=== PATIENT | male | born 1995 | race Caucasian/White ===

== ENCOUNTER 2018-09-16 08:07 | Emergency (ER) | payer BC ==
--- NOTE | 2018-09-16 09:30 | EDM.PDOC ---
ED HPI GENERAL MEDICAL PROBLEM - General Chief Complaint: Headache Stated Complaint: DIZZINESS,MILD HEADACHE Time Seen by Provider: 09/16/18 09:07 Source of Information: Reports: Patient History Limitations: Reports: No Limitations - History of Present Illness INITIAL COMMENTS - FREE TEXT/NARRATIVE: Patient presents with sneezing, runny nose that started 3 days ago. No cough and slight sore throat. He has tried Advil and Tylenol Cough and Cold. 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 [No Known Home Meds] 09/16/18 [History] Past Medical History Psychiatric History: Reports: Depression - Infectious Disease History Infectious Disease History: Reports: None Social & Family History - Tobacco Use Smoking Status *Q: Never Smoker - Caffeine Use Caffeine Use: Reports: Coffee, Energy Drinks, Soda Other Caffeine Use: diet - Recreational Drug Use Recreational Drug Use: No ED ROS ENT - Review of Systems Review Of Systems: See Below Constitutional: Reports: Fever (slight). Denies: Chills, Malaise, Weakness HEENT: Denies: Ear Pain, Throat Pain, Throat Swelling, Vision Change Respiratory: Denies: Shortness of Breath, Wheezing, Cough, Sputum Cardiovascular: Denies: Chest Pain, Syncope GI/Abdominal: Denies: Diarrhea, Vomiting : Reports: No Symptoms Musculoskeletal: Denies: Neck Pain, Shoulder Pain, Arm Pain, Back Pain, Hand Pain, Leg Pain Skin: Denies: Cyanosis, Jaundice, Mottled, Pallor, Diaphoresis Neurological: Reports: Dizziness (mild). Denies: Confusion, Headache, Seizure, Syncope Psychiatric: Denies: Agitation, Anxiety, Confusion ED EXAM, ENT - Physical Exam Exam: See Below Exam Limited By: No Limitations General Appearance: Alert, WD/WN, No Apparent Distress Eye Exam: Bilateral Eye: EOMI, Normal Inspection, PERRL Ears: Normal External Exam, Normal Canal, Hearing Grossly Normal, Normal TMs Nose: Normal Inspection, No Blood Mouth/Throat: Normal Inspection, Normal Gums, Normal Lips, Normal Oropharynx, Normal Teeth Head: Atraumatic, Normocephalic Neck: Normal Inspection, Supple, Non-Tender, Full Range of Motion Respiratory/Chest: No Respiratory Distress, Lungs Clear, Normal Breath Sounds, No Accessory Muscle Use Cardiovascular: Regular Rate, Rhythm, No Murmur Extremities: Normal Inspection, Normal Range of Motion Neurological: Alert, Oriented, Normal Cognition, No Motor/Sensory Deficits Psychiatric: Normal Affect, Normal Mood Skin: Warm, Dry, Intact, Normal Color, No Rash Course - Vital Signs Last Recorded V/S: Last Vital Signs Temp 100.3 F 09/16/18 08:28 Pulse 87 09/16/18 08:28 Resp 18 09/16/18 08:28 BP 140/72 09/16/18 08:28 Pulse Ox 99 09/16/18 08:28 - Re-Assessments/Exams Free Text/Narrative Re-Assessment/Exam: 09/16/18 09:30 Discussed findings, expectations and treatment plan with patient. He is discharged to home in stable condition. Departure - Departure Time of Disposition: 09:24 Disposition: Home, Self-Care 01 Condition: Good Clinical Impression: URI (upper respiratory infection) Qualifiers: URI type: unspecified viral URI Qualified Code(s): J06.9 - Acute upper respiratory infection, unspecified - Discharge Information Instructions: Viral Respiratory Infection, [id number] Referrals: PCP,None [Primary Care Provider] - Additional Instructions: ED HPI GENERAL MEDICAL PROBLEM - General Chief Complaint: Headache Stated Complaint: DIZZINESS,MILD HEADACHE Time Seen by Provider: 09/16/18 09:07 Source of Information: Reports: Patient History Limitations: Reports: No Limitations - History of Present Illness INITIAL COMMENTS - FREE TEXT/NARRATIVE: Patient presents with sneezing, runny nose that started 3 days ago. No cough and slight sore throat. He has tried Advil and Tylenol Cough and Cold. 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 [No Known Home Meds] 09/16/18 [History] Past Medical History Psychiatric History: Reports: Depression - Infectious Disease History Infectious Disease History: Reports: None Social & Family History - Tobacco Use Smoking Status *Q: Never Smoker - Caffeine Use Caffeine Use: Reports: Coffee, Energy Drinks, Soda Other Caffeine Use: diet - Recreational Drug Use Recreational Drug Use: No ED ROS ENT - Review of Systems Review Of Systems: See Below Constitutional: Reports: Fever (slight). Denies: Chills, Malaise, Weakness HEENT: Denies: Ear Pain, Throat Pain, Throat Swelling, Vision Change Respiratory: Denies: Shortness of Breath, Wheezing, Cough, Sputum Cardiovascular: Denies: Chest Pain, Syncope GI/Abdominal: Denies: Diarrhea, Vomiting : Reports: No Symptoms Musculoskeletal: Denies: Neck Pain, Shoulder Pain, Arm Pain, Back Pain, Hand Pain, Leg Pain Skin: Denies: Cyanosis, Jaundice, Mottled, Pallor, Diaphoresis Neurological: Reports: Dizziness (mild). Denies: Confusion, Headache, Seizure, Syncope Psychiatric: Denies: Agitation, Anxiety, Confusion ED EXAM, ENT - Physical Exam Exam: See Below Exam Limited By: No Limitations General Appearance: Alert, WD/WN, No Apparent Distress Eye Exam: Bilateral Eye: EOMI, Normal Inspection, PERRL Ears: Normal External Exam, Normal Canal, Hearing Grossly Normal, Normal TMs Nose: Normal Inspection, No Blood Mouth/Throat: Normal Inspection, Normal Gums, Normal Lips, Normal Oropharynx, Normal Teeth Head: Atraumatic, Normocephalic Neck: Normal Inspection, Supple, Non-Tender, Full Range of Motion Respiratory/Chest: No Respiratory Distress, Lungs Clear, Normal Breath Sounds, No Accessory Muscle Use Cardiovascular: Regular Rate, Rhythm, No Murmur Extremities: Normal Inspection, Normal Range of Motion Neurological: Alert, Oriented, Normal Cognition, No Motor/Sensory Deficits Psychiatric: Normal Affect, Normal Mood Skin: Warm, Dry, Intact, Normal Color, No Rash Course - Vital Signs Last Recorded V/S: Last Vital Signs Temp 100.3 F 09/16/18 08:28 Pulse 87 09/16/18 08:28 Resp 18 09/16/18 08:28 BP 140/72 09/16/18 08:28 Pulse Ox 99 09/16/18 08:28 - Re-Assessments/Exams Free Text/Narrative Re-Assessment/Exam: 09/16/18 09:30 Discussed findings, expectations and treatment plan with patient. He is discharged to home in stable condition. Departure - Departure Time of Disposition: 09:24 Disposition: Home, Self-Care 01 Condition: Good Clinical Impression: URI (upper respiratory infection) Qualifiers: URI type: unspecified viral URI Qualified Code(s): J06.9 - Acute upper respiratory infection, unspecified - Discharge Information Instructions: Viral Respiratory Infection, [id number] Referrals: PCP,None [Primary Care Provider] - Additional Instructions: 1. Drink 8 cups of water daily. 2. Keep warm and get plenty of rest. 3. Antihistamines like: Benadryl (causes drowsiness), Claritin, Zyrtec and Estela will help with the runny nose, sneezing and watery eyes. 4. Mucinex and Sudafed will help clear the sinuses and drainage. Robitussin will help clear lungs. 5. Warm, salt water gargles and sore throat sprays or lozenges will help sore throat. 6. Follow up with your PCP if not resolving in about a week.
== END 2018-09-16 09:35 | disposition home or self-care (01) ==
LOC: KA.ED 08:07
DX: J06.9 Acute upper respiratory infection, unspecified (principal); Z91.040 Latex allergy status
CPT/HCPCS: 99283

== ENCOUNTER 2020-08-17 11:40 | Emergency (ER) | payer BC ==
[2020-08-17] MEDS ORDERED: Hydrocortisone/Neomycin/Polymyxin B Otic Susp 10 ML Bottle EARLF ONE (12:34)
--- NOTE | 2020-08-17 12:48 | EDM.PDOC ---
ED HPI GENERAL MEDICAL PROBLEM - General Chief Complaint: General Stated Complaint: ear ache Time Seen by Provider: 08/17/20 12:26 Source of Information: Reports: Patient History Limitations: Reports: No Limitations - History of Present Illness INITIAL COMMENTS - FREE TEXT/NARRATIVE: Patient presents with left ear pain. He had it a few days ago and had it checked 3 days ago. No infection was noted at that time. He says this started after using Debrox to remove ear wax a few days ago. The last two days it has been getting progressively more painful. He hasn't used anything except the Debrox and Q-tips. Left Ear Pain Score (Numeric/FACES): 5 - Related Data Allergies Allergy/AdvReac Type Severity Reaction Status Date / Time latex Allergy Rash Verified 08/17/20 11:55 Home Meds: Home Meds . [No Known Home Meds] 09/16/18 [History] Past Medical History - Past Health History Medical/Surgical History: Denies Medical/Surgical History Psychiatric History: Reports: Anxiety, Depression - Infectious Disease History Infectious Disease History: Reports: None Social & Family History - Tobacco Use Tobacco Use Status *Q: Never Tobacco User Second Hand Smoke Exposure: Yes - Caffeine Use Caffeine Use: Reports: Coffee, Energy Drinks, Soda Other Caffeine Use: diet - Recreational Drug Use Recreational Drug Use: No - Living Situation & Occupation Occupation: Employed ([employer]) ED ROS GENERAL - Review of Systems Review Of Systems: See Below Constitutional: Denies: Fever, Weakness HEENT: Reports: Ear Pain. Denies: Hearing Loss, Vision Change Respiratory: Denies: Shortness of Breath, Cough Cardiovascular: Denies: Chest Pain, Syncope GI/Abdominal: Denies: Abdominal Pain, Diarrhea, Vomiting : Reports: No Symptoms Musculoskeletal: Reports: No Symptoms Skin: Reports: No Symptoms Neurological: Reports: No Symptoms ED EXAM, GENERAL - Physical Exam Exam: See Below Exam Limited By: No Limitations General Appearance: Alert, WD/WN, No Apparent Distress Eye Exam: Bilateral Eye: EOMI, Normal Inspection, PERRL Ear Exam: Left Ear: Erythema (canal is swollen and erythematous), Foreign Body (looks like small piece of paper towel or q-tip cotton), Tenderness (tugging on external ear causes pain in canal), TM Dull Nose: Normal Inspection, No Blood Throat/Mouth: Normal Inspection, Normal Lips, Normal Voice, No Airway Compromise Head: Atraumatic, Normocephalic Neck: Normal Inspection, Non-Tender, Full Range of Motion Respiratory/Chest: No Respiratory Distress, Lungs Clear, Normal Breath Sounds, No Accessory Muscle Use Cardiovascular: Regular Rate, Rhythm, No Murmur GI/Abdominal: Non-Tender Back Exam: Normal Inspection, Full Range of Motion Extremities: Normal Inspection, Normal Range of Motion Neurological: Alert, Oriented, Normal Cognition, No Motor/Sensory Deficits Psychiatric: Normal Affect, Normal Mood Skin Exam: Warm, Dry, Intact, Normal Color, No Rash Course - Vital Signs Last Recorded V/S: Last Vital Signs Temp 96.2 F L 08/17/20 11:50 Pulse 63 08/17/20 11:50 Resp 18 08/17/20 11:50 BP 148/93 H 08/17/20 11:50 Pulse Ox 99 08/17/20 11:50 - Orders/Labs/Meds Orders: Active Orders 24 hr Category Date Time Status Hydrocort/Neomycin/Polymyxin B [Cortisporin Otic Susp] Med 08/17/20 12:34 Once 1 ml EARLF ONETIME ONE - Re-Assessments/Exams Free Text/Narrative Re-Assessment/Exam: 08/17/20 12:58 Discussed findings and treatment plan with patient. The left ear canal was irrigated but the canal is narrowed with the inflammation and the small piece of cotton/paper was still visible in the canal. It is not against the TM but too far to retrieve without significant discomfort at this time. I advised patient to follow up with his PCP after the infection is cleared up for removal. I placed 4 drops of of Cortisporin in the ear canal and patient was discharged to home in stable condition. Departure - Departure Time of Disposition: 12:58 Disposition: Home, Self-Care 01 Condition: Good Clinical Impression: Foreign body in left ear, initial encounter Otitis externa, left Qualifiers: Otitis externa type: unspecified type Chronicity: acute Qualified Code(s): H60.502 - Unspecified acute noninfective otitis externa, left ear - Discharge Information Instructions: Otitis Externa, [id number] Additional Instructions: Use 4 drops in left ear 3-4 times a day for 10 days. For pain control you can use Ibuprofen 400-600 mg up to 3 times a day as needed. Follow up with your PCP if not improving in 2-3 days or sooner if worsening. This should be completely resolved in a week or so. Follow up with your PCP if not. Sepsis Event Note (ED) - Evaluation Sepsis Screening Result: No Definite Risk - Focused Exam Vital Signs: Vital Signs Temp Pulse Resp BP Pulse Ox 08/17/20 11:50 96.2 F L 63 18 148/93 H 99 - My Orders Last 24 Hours: My Active Orders 08/17/20 12:34 Hydrocort/Neomycin/Polymyxin B [Cortisporin Otic Susp] 1 ml EARLF ONETIME ONE - Assessment/Plan Last 24 Hours: My Active Orders 08/17/20 12:34 Hydrocort/Neomycin/Polymyxin B [Cortisporin Otic Susp] 1 ml EARLF ONETIME ONE
== END 2020-08-17 13:05 | disposition home or self-care (01) ==
LOC: KA.ED 11:40
DX: T16.2XXA Foreign body in left ear, initial encounter (principal); H60.502 Unspecified acute noninfective otitis externa, left ear; Z91.040 Latex allergy status; Z77.22 Contact with and (suspected) exposure to environmental tobacco smoke (acute) (chronic)
CPT/HCPCS: 99282